=== PATIENT | male | born 1950 | race Caucasian/White ===

== ENCOUNTER 2020-12-03 16:51 | Emergency (ER) | payer OTHER ==
[~2020-12-03] VITALS: Ht 185.4 cm; Wt 90.7 kg
[2020-12-03] MEDS ORDERED: VAZALORE81 MG PO (19:17)
[2020-12-03] MEDS ORDERED: NORVASC5 MG PO (19:18)
[2020-12-03] MEDS ORDERED: COREG6.25 MG PO (19:19)
[2020-12-03] MEDS ORDERED: ZYRTEC10 M3 PO (19:19)
[2020-12-03] MEDS ORDERED: HYDROCHLOROTHIA25 MG PO (19:19)
[2020-12-03] MEDS ORDERED: PRAVASTATIN SOD20 MG PO (19:20)
[2020-12-03] MEDS ORDERED: ULTRAM50 MG PO (19:20)
== END 2020-12-03 21:05 | disposition home or self-care (01) ==
LOC: ED 16:51
DX: S02.2XXA Fracture of nasal bones, initial encounter for closed fracture (principal); M25.561 Pain in right knee; M25.562 Pain in left knee; W01.10XA Fall on same level from slipping, tripping and stumbling with subsequent striking against unspecified object, initial encounter; I25.2 Old myocardial infarction; I10 Essential (primary) hypertension; E78.5 Hyperlipidemia, unspecified; Z88.7 Allergy status to serum and vaccine; Z88.2 Allergy status to sulfonamides; Z79.899 Other long term (current) drug therapy; Z79.82 Long term (current) use of aspirin
CPT/HCPCS: 70450; 70486; 72125; 73560; 90471; 90715; 99284-25